=== PATIENT | female | born 1980 | race African-American/Black ===

== ENCOUNTER 2018-12-30 14:14 | Emergency (ER) | payer OTHER, MEDICAID ==
[~2018-12-30] VITALS: Ht 162.6 cm; Wt 67.0 kg
[2018-12-30 15:10] VITALS: BP 140/90
== END 2018-12-30 15:17 | disposition home or self-care (01) ==
LOC: ER 14:14
DX: L03.221 Cellulitis of neck (principal); F17.200 Nicotine dependence, unspecified, uncomplicated
CPT/HCPCS: 99282